=== PATIENT | female | born 1955 | race Caucasian/White ===

== ENCOUNTER 2018-10-03 23:49 | Emergency (ER) | payer MEDICAID ==
[~2018-10-03] VITALS: Ht 160 cm; Wt 67.6 kg
[2018-10-03 23:53] VITALS: BP 143/80
[2018-10-04] MEDS ORDERED: ketorolac trometh inj. 60 MG/2 ML VIAL IM ONE (00:15)
[2018-10-04] MEDS ORDERED: oxyCODONE/APAP 10/325mg tablet PO ONE (00:15)
[2018-10-04] MEDS ORDERED: orphenadrine citrate 60mg/2ml inj. IM ONE (00:15)
== END 2018-10-04 00:59 | disposition home or self-care (01) ==
LOC: ER 23:50
DX: G89.29 Other chronic pain (principal); M25.551 Pain in right hip; M54.5 Low back pain; Z88.5 Allergy status to narcotic agent; Z91.040 Latex allergy status
CPT/HCPCS: 96372; 99283; J1885; J2360